=== PATIENT | female | born 1970 | race Caucasian/White ===

== ENCOUNTER → 2017-03-15 | Outpatient (CLI) | payer OTHER ==
--- NOTE | 2017-03-29 00:02 | CON ---
[address] [address] CONSULTATION Name: SOL TOPETE Room: [facility]#: [id number] Admission: 03/15/17 Attend Phys: Osorio Richardson MD Discharge: Date of : 74 Report #: [id number] THIS REPORT FOR: //name// CC: Osorio Nielson MD DATE OF SERVICE: 03/15/2017 REFERRING PHYSICIAN: Simon Nielson M.D. 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 HISTORY OF PRESENT ILLNESS: The patient is a 46-year-old woman who had a tonsillectomy when she was very young and then she said she started developing a little bit of regrowth in the tonsillar area about 24 years ago, but really did not cause any symptoms up until about end of 12/2016 beginning in January 2017 where it became more painful and inflamed. She then went on to the Ear, Nose and Throat physician, Dr. Nielson. 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 No roshan malignancy was noted. It was P11 positive. Her symptoms have improved since the resection. She presents for evaluation. PAST MEDICAL HISTORY AND PAST SURGICAL HISTORY: Includes section in 1996, hysterectomy in 2014. MEDICATIONS: Omeprazole as needed, dicyclomine. ALLERGIES: ERYTHROMYCIN. OBSTETRICAL AND GYNECOLOGIC HISTORY: Menarche at age 17. Last menstrual period in 2013. The patient is 1, para 1. FAMILY HISTORY: Unknown, the patient is adopted. SOCIAL HISTORY: She is an insurance verification representative. She is . She has 1 daughter. Ethanol: she drinks an alcohol containing beverages about once a day. Cigarettes: she smokes about 1 pack per day. REVIEW OF SYSTEMS: GENERAL: She denied having any fevers or chills. SKIN: The patient denied having color [place] [address] CONSULTATION Name: SOL TOPETE Room: [facility]#: [id number] Admission: 03/15/17 Attend Phys: Osorio Richardson MD Discharge: Date of : 74 Report #: [id number] LYMPH NODES: The patient denied having enlarged or painful glands in the neck. ENDOCRINE: The patient denied having any hot or cold intolerance. HEMATOLOGY/IMMUNOLOGY: The patient denied having any recent bleeding. MUSCULOSKELETAL: The patient did not have any painful swollen joints. HEAD AND NECK: The patient denied having any headaches or migraines. RESPIRATORY: The patient denied having any shortness of breath or cough. CARDIOVASCULAR: The patient denied having any palpitations. GASTROINTESTINAL: The patient denied having nausea or vomiting. NEUROLOGIC: The patient denied any focal weakness. PHYSICAL EXAMINATION: VITAL SIGNS: Height is 5 feet 9 inches, weight 134.8 pounds, blood pressure is 114/77, pulse 75, respirations 16. LYMPH NODES: The patient had no palpable cervical or supraclavicular lymphadenopathy. GENERAL AND PSYCHIATRIC: The patient was alert, oriented, in no acute distress. EYES: Pupils were equal, round, reactive to light and accommodation. Extraocular movement is intact. HEAD, EARS, NOSE AND THROAT: Mouth: The patient has a well-healed area in the left oropharyngeal area with no suspicious visible lesions seen in the mouth or in the tonsillar area. There were no suspicious palpable lesions. HEART: Had a regular rate and rhythm without murmur. LUNGS: were clear to auscultation. ABDOMEN: Not tender. Spleen was not palpable. Liver was at the costal margin. EXTREMITIES: Had no clubbing, cyanosis or edema. NEUROLOGIC: Cranial nerves 2-12 are intact. Sensation was intact. She had 5/5 strength throughout. ASSESSMENT AND PLAN: The patient has squamous papillomas that were excised and had moderate dysplasia. So I was going to see if we can get another review of her slides to confirm that there was no malignancy in the specimen. I asked the patient to schedule a follow up appointment to see me after the pathologic review. If there is no malignancy in the specimen then the risk of developing malignancy in the future with moderate dysplasia is about 22% and this is based on series such as the one by Dr. Pedroza. So if there is no clear evidence of malignancy, I told her that she should then follow up closely with her Ear, Nose and Throat physician to monitor that area for any sign of recurrence and I also urged the patient to try to quit smoking. <ELECTRONICALLY SIGNED> By: Osorio Richardson MD 03/29/17 0002 [id number] Richardson MD /nt
== END ==
LOC: M.RTH 01:00
DX: D10.4 Benign neoplasm of tonsil (principal); F17.200 Nicotine dependence, unspecified, uncomplicated; P11.1 Other specified brain damage due to birth injury; Q89.8 Other specified congenital malformations; Z90.710 Acquired absence of both cervix and uterus; Z72.89 Other problems related to lifestyle